=== PATIENT | female | born 1980 | race Caucasian/White ===

== ENCOUNTER 2019-04-13 14:40 | Emergency (ER) | payer BC, OTHER ==
[~2019-04-13] VITALS: Ht 175.3 cm; Wt 83.9 kg
[~2019-04-13 14:40] MED LIST: AMBIEN 10 MG TA10 MG PO; B12INJ IM; BIOTIN5 MG PO; CORGARD20 MG PO; FISH OIL 1,001000 M2 PO; HYOSCYAMINE0.125 MG PO; IRON325 PO; NADOLOL 20 MG T20 M1 PO; PHENTERMINE H37.5 M1 PO; ULTRAM 50MG TAB50 MG PO; VITAMIN D 5050000 I1 PO; ZANAFLEX4 MG PO; ZOFRAN4 MG PO; ZOLPIDEM TART12.5 MG PO; ZOLPIDEM TARTRA10 MG PO
[2019-04-13 15:41] LABS: URINE BILIRUBIN NEGATIVE (Negative); URINE BLOOD NEGATIVE (Negative); URINE CLARITY CLEAR; URINE COLOR YELLOW; URINE GLUCOSE-RANDOM* NEGATIVE (Negative); URINE KETONES NEGATIVE (Negative); URINE LEUKOCYTES-REFLEX NEGATIVE (Negative); URINE NITRITE-REFLEX NEGATIVE (Negative); URINE PROTEIN (DIPSTICK) NEGATIVE (Negative); URINE SPECIFIC GRAVITY <= 1.005 (1.005-1.035); URINE UROBILINOGEN 0.2 E.U./dl (0.2-1.0)
[2019-04-13 15:49] LABS: AMP/METHAMP Negative (Negative); BARBITURATES Negative (Negative); BENZODIAZEPINES Negative (Negative); COCAINE Negative (Negative); METHADONE Negative (Negative); OPIATES Negative (Negative); PCP Negative (Negative)
[2019-04-13 15:49] LABS: ABSOLUTE NEUTROPHILS 4.4 thou/uL (1.4-8.2); BASOPHILS 0.5 % (0.0-2.0); EOSINOPHILS 1.5 % (0.0-3.0); HEMATOCRIT 37.4 % (37.0-47.0); HEMOGLOBIN 12.5 gm/dL (12.0-15.0); LYMPHOCYTES 21.2 % (24.0-44.0); MCH 30.4 pg (26.0-34.0); MCHC 33.5 g/dL (28.0-37.0); MCV 90.9 fL (80.0-100.0); MONOCYTES 8.5 % (1.0-8.0); PLATELET COUNT 281 thou/uL (150-400); POLYS 68.3 % (36.0-66.0); RBC 4.12 mil/uL (4.20-5.00); RDW 12.8 % (10.5-14.5); WBC 6.4 thou/uL (4.0-11.0)
[2019-04-13 15:55] LABS: CALCIUM 9.6 mg/dL (8.5-10.1); CREATININE 0.7 mg/dL (0.6-1.0); POTASSIUM 4.2 mmol/L (3.5-5.1)
[2019-04-13] MEDS ORDERED: SINGULAIR 10 MG10 M1 PO (17:15)
[2019-04-13] MEDS ORDERED: ZANAFLEX4 MG PO (17:15)
[2019-04-13] MEDS ORDERED: CELEXA10 MG PO (17:15)
[2019-04-13] MEDS ORDERED: ZANTAC 150MG T150 MG PO (17:16)
[2019-04-13 17:18] VITALS: BP 118/72
== END 2019-04-13 17:18 | disposition home or self-care (01) ==
LOC: ER 14:40
PROVIDERS: Emergency Medicine
DX: R41.0 Disorientation, unspecified (principal); F32.9 Major depressive disorder, single episode, unspecified; Z98.890 Other specified postprocedural states

== ENCOUNTER 2021-05-12 22:45 | Emergency (ER) | payer BC, OTHER ==
[~2021-05-12] VITALS: Ht 175.3 cm; Wt 82.1 kg
[~2021-05-12 22:45] MED LIST changes: +CELEXA10 MG PO; +SINGULAIR 10 MG10 M1 PO; +ZANTAC 150MG T150 MG PO
[2021-05-12] MEDS ORDERED: OMEPRAZOLE 20 M20 M1 PO (22:55)
[2021-05-13] LABS: ANION GAP 12 mmol/L (7-16); BUN 11 mg/dL (7-18); CALCIUM 8.6 mg/dL (8.5-10.1); CHLORIDE 104 mmol/L (98-107); CO2 26 mmol/L (21-32); CREATININE 0.8 mg/dL (0.6-1.0); GLUCOSE 122 mg/dL (74-106); POTASSIUM 3.8 mmol/L (3.5-5.1); SODIUM 142 mmol/L (136-145)
[2021-05-13 00:11] LABS: ALBUMIN 3.2 g/dL (3.4-5.0); LIPASE 180 U/L (73-393); SGOT 18 U/L (15-37); SGPT 19 U/L (14-59); TOTAL BILIRUBIN 0.1 mg/dL (0.2-1.0); TOTAL PROTEIN 7.9 g/dL (6.4-8.2)
[2021-05-13 00:32] LABS: ABSOLUTE NEUTROPHILS 4.6 thou/uL (1.4-8.2); BASOPHILS 0.7 % (0.0-2.0); EOSINOPHILS 1.3 % (0.0-3.0); HEMATOCRIT 29.5 % (37.0-47.0); HEMOGLOBIN 9.8 gm/dL (12.0-15.0); LYMPHOCYTES 27.4 % (24.0-44.0); MCH 27.9 pg (26.0-34.0); MCHC 33.2 g/dL (28.0-37.0); MCV 84.1 fL (80.0-100.0); MONOCYTES 9.6 % (1.0-8.0); PLATELET COUNT 271 thou/uL (150-400); RDW 14.8 % (10.5-14.5); WBC 7.5 thou/uL (4.0-11.0)
[2021-05-13] MEDS ORDERED: ZOFRAN ODT4 MG PO (04:09)
[2021-05-13 04:14] VITALS: BP 108/54
--- NOTE | 2021-05-13 11:31 | EKG ---
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
--- NOTE | 2021-05-13 11:32 | EKG ---
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1980 Requested By: Chi Mcgraw Order Number: [id number] MD: Nickolas Jaramillo Measurements Intervals [place] Rate: 80 P: 46 SC: 166 QRS: 35 QRSD: 98 T: 19 QT: 367 QTc: 424 Interpretive Statements Sinus rhythm No significant abnormality Compared to ECG 05/12/2021 22:52:53 No significant changes Electronically Signed On 05-13-2021 11:32:18 CDT by Nickolas Jaramillo [email or web address] <ELECTRONICALLY SIGNED> By: Nickolas Jaramillo MD, [facility] 05/13/21 1132 [id number] Nickolas Jaramillo MD, FAC /EPI
== END 2021-05-13 04:52 | disposition home or self-care (01) ==
LOC: ER 22:45
PROVIDERS: Emergency Medicine
DX: R07.89 Other chest pain (principal); F32.9 Major depressive disorder, single episode, unspecified; Z98.890 Other specified postprocedural states; Z79.899 Other long term (current) drug therapy; Z79.891 Long term (current) use of opiate analgesic